=== PATIENT | male | born 1945 | race Caucasian/White ===

== ENCOUNTER 2018-02-09 13:36 | Outpatient (CLI) | payer MEDICARE, BC | END 2018-02-09 23:59 | disposition home or self-care (01) | LOC: RAD 13:36 | PROVIDERS: ATTEND Neurological Surgery | DX: R13.12 Dysphagia, oropharyngeal phase (principal); R47.1 Dysarthria and anarthria; R49.0 Dysphonia; G20 Parkinson's disease | CPT/HCPCS: 74230 ==